=== PATIENT | female | born 1965 | race Caucasian/White ===

== ENCOUNTER → 2017-04-17 16:49 | Outpatient (CLI) | payer OTHER ==
[2014-04-09 12:00] VITALS: BMI 42.1
[~2017-04-17 16:49] MED LIST: FERROUS SULFAT140 MG PO; HYDROCODON-ACE1 EAC8 PO; HYDROCODONE-APA1 TAB PO; IBUPROFEN600 MG PO
== END | disposition home or self-care (01) ==
LOC: D.MAMMO 10:45
DX: Z12.31 Encounter for screening mammogram for malignant neoplasm of breast (principal)

== ENCOUNTER 2018-05-31 19:00 | Outpatient (CLI) | payer OTHER ==
[2014-04-09 12:00] VITALS: BMI 42.1
== END 2018-05-31 23:59 | disposition home or self-care (01) ==
LOC: D.MAMMO 19:00
DX: Z12.31 Encounter for screening mammogram for malignant neoplasm of breast (principal)

== ENCOUNTER 2019-06-13 09:00 | Outpatient (CLI) | payer BC ==
[2014-04-09 12:00] VITALS: BMI 42.1
== END 2019-06-13 10:00 | disposition home or self-care (01) ==
LOC: D.MAMMO 09:00
PROVIDERS: ATTEND Internal Medicine
DX: Z12.31 Encounter for screening mammogram for malignant neoplasm of breast (principal)